=== PATIENT | female | born 1990 | race Caucasian/White ===

== ENCOUNTER → 2022-06-20 | Outpatient (CLI) | payer BC, OTHER ==
[2022-06-20 17:04] VITALS: BP 111/77; PULSE 89; TEMP 98.3; BMI 50.1
--- NOTE | 2022-06-20 17:35 | P.HPBAR ---
Bariatric H&P - History & Physicial H&P Date: 06/20/22 History & Physicial: Visit/CC: new patient Patient initial contact: Initial weight: Initial weight in pounds: Height: 5 ft 2.5 in Initial BMI: Last weight: Current weight: 126.507 kg Current weight in pounds: 278.90 Current BMI: 50.1 [place] body weight (based on NIH guidelines): 51.029 kg Excess body weight loss: The patient is a 32 year-old F who presents for Bariatric Assessment. She has lost weight on her own with not eating. She was down to 238 pounds in 2018 and gained all her weight. She is looking into gastrectomy. She needs left knee replacment. She feel down flight of stairs. She has severe hip and back pain from her pain. 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 She is tearful. She was on adipex last year. MOther with troubles with weight. She had weight loss surgery last year and is doing well. Past Medical History Past Medical History: Asthma Additional Past Medical History / Comment(s): migraine headaches, degenerative joint disease left knee, right eye high pressure, heart palpitations History of Any Multi-Drug Resistant Organisms: None Reported Past Surgical History: Orthopedic Surgery, Tubal Ligation Additional Past Surgical History / Comment(s): left knee surgery Past Anesthesia/Blood Transfusion Reactions: No Reported Reaction, Motion Sickness Past Psychological History: Anxiety Smoking Status: Former smoker Past Alcohol Use History: Occasional Past Drug Use History: Marijuana Additional Drug Use History / Comment(s): occasional marijuana for pain Surgical - Exam Vital Signs Temp Pulse BP 98.3 F 89 111/77 06/20/22 16:59 06/20/22 16:59 06/20/22 16:59 Bariatric Checklist Checklist: Plan: Checklist: EGD: 1. Hiatal hernia: 2. H. Pylori: HgbA1c: Vitamin D: Smoking: Primary care physician referral: Yoon Zabala NP Psychiatry clearance: Cardiology clearance: Sleep study: Diet journal: VTE risk score: VTE risk level: Rehab needs at discharge:
== END ==
LOC: BARWHC3 15:54
PROVIDERS: ATTEND Surgery Plastic and Reconstructive Surgery
DX: E66.01 Morbid (severe) obesity due to excess calories (principal); Z53.9 Procedure and treatment not carried out, unspecified reason
CPT/HCPCS: 99203

== ENCOUNTER → 2022-10-03 | Outpatient (CLI) | payer BC, OTHER ==
[2022-10-03 16:17] VITALS: BP 118/80; PULSE 69; RESP 12; TEMP 98.7; BMI 50.3
--- NOTE | 2022-10-03 17:14 | P.BASOAP ---
Subjective Progress Note Date: 10/03/22 She is looking into all options. REcommend revisit options. Follow up after Objective - Vital Signs Vital signs: Vital Signs Temp 98.7 F 10/03/22 16:14 Pulse 69 10/03/22 16:14 Resp 12 10/03/22 16:14 BP 118/80 10/03/22 16:14 Pulse Ox FiO2 Intake & Output 10/02/22 10/03/22 10/03/22 18:59 06:59 18:59 Weight 126.87 kg Assessment/Plan Plan: Date: 10/03/22 Initial Weight: Initial BMI: Current Weight: 126.87 kg Current BMI: 50.3 Type of Surgery: Total Volume in Band: Previous Volume: Volume Removed: Volume Added: Band Size:
== END ==
LOC: BARWHC3 15:09
PROVIDERS: ATTEND Surgery Plastic and Reconstructive Surgery
DX: E66.01 Morbid (severe) obesity due to excess calories (principal); Z68.43 Body mass index [BMI] 50.0-59.9, adult; Z91.048 Other nonmedicinal substance allergy status; Z88.8 Allergy status to other drugs, medicaments and biological substances
CPT/HCPCS: 99211

== ENCOUNTER 2023-06-24 09:07 | Day surgery (SDC) | payer OTHER ==
[2023-06-21 11:35] VITALS: BMI 53.8
--- NOTE | 2023-06-24 07:08 | P.GSHP ---
History of Present Illness H&P Date: 06/24/23 CHIEF COMPLAINT: Cholecystitis HISTORY OF PRESENT ILLNESS: The patient is a 33-year-old female who presents with history of epigastric including right upper quadrant abdominal pain. She underwent diagnostic studies for her gallbladder. Separately her clinical picture was consistent with cholecystitis. Now she presents for surgical intervention. PAST MEDICAL HISTORY: Please see list PAST SURGICAL HISTORY: Please see list MEDICATIONS: Please see list ALLERGIES: Please see list SOCIAL HISTORY: Please see list FAMILY HISTORY: Please see list REVIEW OF ORGAN SYSTEMS: CONSTITUTIONAL: No reports of fevers or chills. HEENT: Denies any troubles with the vision or hearing. ENDOCRINE: No reports of hypothyroidism. No diabetes. RESPIRATORY: No recent pneumonias. CARDIOVASCULAR: Denies chest pain or palpitations GI: No blood in stools or constipation. MUSCULOSKELETAL: Has occasional joint pain including back pain. NEURO: No seizure disorders or headaches. No recent stroke. PSYCH: No depression or suicidal ideation. GENITOURINARY: No active blood in urine. No urinary hesitancy. HEMATOLOGIC: No personal or family history of DVTs or pulmonary emboli. SKIN: No skin cancer. PHYSICAL EXAM: VITAL SIGNS: Afebrile vital signs stable GENERAL: Well-developed pleasant in no acute distress. HEENT: No scleral icterus. Extraocular movements grossly intact. Moist buccal mucosa. NECK: Supple without lymphadenopathy. CHEST: Unlabored respirations. Equal bilateral excursions. CARDIOVASCULAR: Regular rate regular rhythm rhythm. Distal 2+ pulses. ABDOMEN: Soft, nondistended. Tender along the epigastrium and right upper quadrant. MUSCULOSKELETAL: No clubbing, cyanosis, or edema. NEURO: Cranial nerves II to XII within normal limits. No focal or lateralizing signs. PSYCH: Alert and oriented to person, place and time. SKIN: Well-perfused good skin turgor. ASSESSMENT: 1. Epigastric and right upper quadrant abdominal pain 2. Chronic cholecystitis 3. Symptomatic gallstones. PLAN: 1. Will need a robotic cholecystectomy possible open. Benefits and risks were described. 2. Heparin for DVT prophylaxis 5000 units. 3. Antibiotic prophylaxis. 4. CBC and CMP on day of procedure 5. Non-narcotic pre and post op pain management reviewed. 6. Indocyanine green for biliary imaging. 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), heart palpitations - when stressed History of Any Multi-Drug Resistant Organisms: None Reported Past Surgical History: Orthopedic Surgery, Tonsillectomy, Tubal Ligation Additional Past Surgical History / Comment(s): left knee surgery ACL and patella repair Past Anesthesia/Blood Transfusion Reactions: No Reported Reaction, Motion Sickness Additional Past Anesthesia/Blood Transfusion Reaction / Comment(s): motion sickness on boats Smoking Status: Former smoker Medications and Allergies Home Medications Medication Instructions Recorded Confirmed Type No Known Home Medications 09/12/22 06/21/23 History Allergies Allergy/AdvReac Type Severity Reaction Status Date / Time adhesive Allergy Rash/Hives Verified 10/03/22 16:13 metronidazole [From Flagyl] Allergy Rash/Hives Verified 10/03/22 16:13
[~2023-06-24 09:07] MED LIST: INDOCYANINE GREEN 25 MG VIAL IV STA; LIDOCAINE 1% (10MG/ML) FOR IV START INTRADERMA PRN; droPERidol 5 MG/2 ML VIAL IVP ONE
[2023-06-24 10:03] VITALS: RESP 16
[2023-06-24] MEDS: LACTATED RINGERS 1,000 ML IV SCH (10:05)
[2023-06-24 10:23] LABS: Basophils % (A) 0 %; Eosinophils # (A) 0.2 k/uL (0-0.7); Eosinophils % (A) 3 %; HCT 37.9 % (34.0-46.0); HGB 13.1 gm/dL (11.4-16.0); Lymphocytes # (A) 2.2 k/uL (1.0-4.8); Lymphocytes % (A) 39 %; MCH 31.6 pg (25.0-35.0); MCHC 34.6 g/dL (31.0-37.0); MCV 91.4 fL (80.0-100.0); Mean Platelet Volume 8.4; Monocytes # (A) 0.3 k/uL (0-1.0); Monocytes % (A) 5 %; Neutrophils # (A) 2.9 k/uL (1.3-7.7); Neutrophils % (A) 51 %; Platelet Count 227 k/uL (150-450); RBC 4.15 m/uL (3.80-5.40); WBC 5.7 k/uL (3.8-10.6)
[2023-06-24] MEDS: ONDANSETRON 4 MG/2 ML VIAL IVP ONE (10:28)
[2023-06-24] MEDS: DEXAMETHASONE SOD PHOSPHATE 4 MG/ML 1 ML VIAL IV ONE (10:28)
[2023-06-24] MEDS: HEPARIN SODIUM,PORCINE 5,000 UNIT/ML 1 ML VIAL SQ PRN (10:28)
[2023-06-24] MEDS ORDERED: NEOSTIGMINE 1 MG/ML 10 ML VIAL ONE (10:34)
[2023-06-24] MEDS ORDERED: ROCURONIUM 10 MG/ML (5 ML VIAL) IV ONE (10:34)
[2023-06-24] MEDS ORDERED: MIDAZOLAM 2 MG/2 ML VIAL ONE (10:34)
[2023-06-24] MEDS ORDERED: PROPOFOL 10 MG/ML 20 ML VIAL IV ONE (10:34)
[2023-06-24] MEDS ORDERED: SUCCINYLCHOLINE CHLORIDE 200 MG/10 ML VIAL IV ONE (10:34)
[2023-06-24] MEDS ORDERED: fentaNYL (PF) 50 MCG/ML 2 ML AMP ONE (10:34)
[2023-06-24] MEDS ORDERED: LIDOCAINE 1% INJ 10MG/ML (20 ML MDV) ONE (10:34)
[2023-06-24] MEDS ORDERED: GLYCOPYRROLATE 0.2 MG/ML 2 ML VIAL ONE (10:34)
[2023-06-24] MEDS ORDERED: HYDROmorphone (PF) 1 MG/ML ONE (10:34)
[2023-06-24] MEDS: ceFAZolin 3 GM in SODIUM CHLORIDE 0.9% 100 ML IVPB PRN (10:39)
[2023-06-24 10:42] LABS: ALT 27 U/L (4-34); AST 30 U/L (14-36); African American GFR (CKD) >90 (>60 ml/min/1.73 sqM); Alkaline Phosphatase 61 U/L (38-126); Anion Gap 6 mmol/L; Blood Urea Nitrogen 10 mg/dL (7-17); Calcium 8.8 mg/dL (8.4-10.2); Carbon Dioxide 24 mmol/L (22-30); Chloride 109 mmol/L (98-107); Glucose 94 mg/dL (74-99); Non-African American GFR(CKD) >90 (>60 ml/min/1.73 sqM); Potassium 4.3 mmol/L (3.5-5.1); Sodium 139 mmol/L (137-145); Total Bilirubin 0.6 mg/dL (0.2-1.3)
[2023-06-24] MEDS: LIDOCAINE 1%-EPI 1:100,000 50 ML VIAL SQ ONE (11:06)
[2023-06-24] MEDS: LACTATED RINGERS 1,000 ML IV ONE (11:38)
--- NOTE | 2023-06-24 12:25 | P.HPADDEND ---
H&P Addendum H&P Addendum Date: 06/24/23 Patient had abnormal EKG was repeated confirming an abnormal EKG. Patient confirmed that she was able to run around her home after chasing rabbits. Will need cardiac risk assessment postoperatively.
--- NOTE | 2023-06-24 12:29 | P.OP ---
Date of Procedure: 06/24/23 Description of Procedure: SURGEON: THA SYKES MD PREOPERATIVE DIAGNOSES: 1. Symptomatic gallstones 2. Morbid obesity due to excess calories, BMI 54.4 POSTOPERATIVE DIAGNOSES: 1. Symptomatic gallstones 2. Morbid obesity due to excess calories, BMI 54.4 3. Hepatomegaly, mild OPERATION: Robotic-assisted da Junior Xi laparoscopic cholecystectomy, multiport with FIREFLY ESTIMATED BLOOD LOSS: 5 mL. SPECIMENS REMOVED: Gallbladder. COMPLICATIONS: None. OPERATIVE FINDINGS: 1. Dome down technique for cholecystectomy due to moderate fatty tissue is cystic duct 2. Mild fatty liver disease 3. No intra-abdominal adhesions INDICATIONS: The patient is a 33 year-old female who presents with symptomatic gallstones. Surgical intervention with cholecystectomy was described. Robotic assisted laparoscopic approach was described. Benefits and risks of the procedure including but not limited to bleeding, infection, injury to the biliary tree was reviewed. Informed consent was obtained. DESCRIPTION OF PROCEDURE: Patient was brought to the operating room, placed in supine position. After general induction, the abdomen had been prepped and draped in standard sterile fashion. The robotic da Junior XI system was primed. After a timeout protocol was performed, the patient had been prepped and draped in standard sterile fashion. The patient was injected with indocyanine green. A 5 mm 0 degrees laparoscopic trocar entry was performed along the left upper quadrant. The abdomen insufflated to 15 mmHg pressure which was tolerated well. Diagnostic laparoscopy demonstrated no injury to bowel viscera or mesentery. Mild hepatomegaly was identified. Next, two 8 mm robotic ports were placed along the right upper abdomen. The camera 8-mm port was maintained along the epigastrium. Another 8 mm port was placed along the left upper abdominal wall after exchanging the 5 mm port. Please note that the ports were placed at least 10 to 15 cm away from the target anatomy of the gallbladder. The robot was docked along the left lateral abdomen. The patient was repositioned in reverse Trendelenburg position with the right side up. Using a grasper for arm 3, a grasper for arm 4, including hook cautery for arm 1, the robotic system was docked and primed as described. Instruments were interchanged by the graphic design assistant including hook cautery, Bovie cautery and clip appliers. I had sat at the console. The gallbladder was reflected towards the dome of the liver. The gallbladder was largely mesenteric allowing dome down technique. Using a sponge, the liver was reflected towards the diaphragm and starting at the gallbladder fundus, hook cautery was used to find the avascular plane between the liver and the gallbladder. As the gallbladder was dissected from the hepatic fossa, hemostasis was checked using vessel sealer along the posterior gallbladder. Next, indocyanine green was used to confirm the common bile duct as well as cystic duct. The gallbladder had moderate infundibulum. The infundibulum was retracted laterally to expose the cystic duct away from the common bile duct. The cystic duct was dissected free from its surrounding tissue. FIREFLY was used to identify the cystic structures. A critical view of safety was obtained. Large PLASTIC clips were used throughout the entire case. Using a clip tour sales representative, a clip was placed at the junction of the infundibulum and cystic duct. A total of 6-7 clips were used. Electro-Bovie cautery and vessel sealer was used to remove the gallbladder without decompression. Hemostasis was checked and found to be adequate. The robot was undocked. I re-scrubbed into the case. A 10 mm Endo Catch bag was used to remove the gallbladder in total via the left upper quadrant incision after widening the incision. The specimen was removed from the abdominal cavity. [place] Aj and 0 Vicryl was used to close the fascial defect of the left upper quadrant. All pneumoperitoneum instruments were evacuated from the abdominal cavity. The incisions were cleansed using dilute hydrogen peroxide. The incisions were reapproximated using 4-0 Monocryl in an interrupted subcuticular fashion. Please note along the trocar sites, local anesthetic was placed as a field block prior to insertion of all instruments. Liquid glue was applied to the skin. At the end of the procedure needle, sponge, and instrument count had been verified correct by the surgical scrub tech. The patient was transferred to postanesthesia care unit in stable condition. Intraoperative films were shared with the patient's family who were pleased with the level of care. Plan - Discharge Summary Discharge Rx Participant: Yes New Discharge Prescriptions: New Ibuprofen [Motrin] 600 mg PO Q8HR PRN #30 tab PRN Reason: Pain Acetaminophen Tab [Tylenol Tab] 1,000 mg PO Q6HR PRN #30 tablet PRN Reason: Pain Simethicone [Gas-X] 125 mg PO AC-TID PRN #20 capsule PRN Reason: Pain Discharge Medication List Acetaminophen Tab [Tylenol Tab] 1,000 mg PO Q6HR PRN #30 tablet 06/24/23 [Rx] Ibuprofen [Motrin] 600 mg PO Q8HR PRN #30 tab 06/24/23 [Rx] Simethicone [Gas-X] 125 mg PO AC-TID PRN #20 capsule 06/24/23 [Rx] Follow up [facility]ment(s[facility]Ref[place] [facility] [place] [facility] [place] [facility]23 9:00 am Patient Instructions/Handouts: *Sur[facility] - Laparoscopic Cholecystectomy Discharge Instructions, *Surgery [facility] - (Anesthesia) Discharge Instructions Outpatient Surgery, Low Fat Diet (GEN) Activity/Diet/Wound Care/Special Instructions: Recommend low-fat diet for the next 2 days. No lifting over 10 pounds in 2 weeks until Jul 08September shower. No bath tub soaks for two weeks until Jul 08 Diet as tolerated. Use Tylenol, simethicone and ibuprofen or Aleve scheduled for the next 24-48 hours for best pain relief. Use ice along incisions for today to prevent swelling. Discharge Disposition: HOME SELF-CARE
[2023-06-24 12:34] VITALS: TEMP 97.9
[2023-06-24] MEDS: HYDROmorphone 0.5 MG/0.5 ML SYRINGE IVP PRN (12:56)
[2023-06-24] MEDS: diphenhydrAMINE 50 MG/ML 1 ML VIAL IVP ONE (13:07)
[2023-06-24 13:34] VITALS: PULSE 89
[2023-06-24 14:05] VITALS: BP 138/76
== END 2023-06-24 14:45 | disposition home or self-care (01) ==
LOC: OR 09:07
PROVIDERS: ATTEND Surgery Plastic and Reconstructive Surgery
DX: K80.10 Calculus of gallbladder with chronic cholecystitis without obstruction (principal); E66.01 Morbid (severe) obesity due to excess calories; Z68.43 Body mass index [BMI] 50.0-59.9, adult
CPT/HCPCS: 47563; 81025; 88304; 80053; 85025; J2250; J0330; J1200; J1644; J1100; J2710; J0690; J2405; J2001; J3010; J1170 ×2; J2704

== ENCOUNTER → 2023-06-28 | Outpatient (CLI) | payer OTHER ==
--- NOTE | 2023-06-28 09:27 | P.PN ---
Progress Note - Text Progress Note Date: 06/28/23 To whom it may concern: Aura Hilton is under my surgical care and just had surgery. She will need recovery from Jun 24, 2023 through Jul 07, 2023. She may return to work Saturday without restrictions. Regards, Eun Russell MD
[2023-06-28 10:25] VITALS: BMI 51.2
[2023-06-28] MEDS: DEXAMETHASONE SOD PHOSPHATE 10 MG/ML 1 ML VIAL IM STA (10:39)
[2023-06-28 10:57] VITALS: BP 131/65; PULSE 64; RESP 14; TEMP 98.2
--- NOTE | 2023-06-28 11:21 | P.BASOAP ---
Subjective Progress Note Date: 06/28/23 Patient has moderate rash along abdomen and pannus. Likely reaction from [place]. Recommend Claritin, Zyrtec, Benadryl at home. Also recommend Decadron injection. Patient had abnormal EKG at the time of her gallbladder surgery. Will need referral to a extrusion technician for abnormal EKG. Additionally, recommend full bariatric labs as a nutritional panel is absent. Will need full bariatric risk assessment pending. Otherwise, no infection along incisions. Recommend 2- week recovery. Presence of panniculitis with redness in each breast and pannus identified. Objective - Vital Signs Vital signs: Vital Signs Temp 98.2 F 06/28/23 10:34 Pulse 64 06/28/23 10:34 Resp 14 06/28/23 10:34 BP 131/65 06/28/23 10:34 Pulse Ox FiO2 Intake & Output 06/27/23 06/28/23 06/28/23 18:59 06:59 18:59 Weight 129.274 kg Assessment/Plan Plan: Date: 06/28/23 Initial Weight: 126.354 kg Initial BMI: 50.1 Current Weight: 129.274 kg Current BMI: 51.2 Type of Surgery: Total Volume in Band: Previous Volume: Volume Removed: Volume Added: Band Size:
== END ==
LOC: BARWHC3 09:08
PROVIDERS: ATTEND Surgery Plastic and Reconstructive Surgery
DX: T78.40XA Allergy, unspecified, initial encounter (principal)
CPT/HCPCS: 99213; 96372; J1100

== ENCOUNTER → 2023-06-28 | Outpatient (CLI) | payer OTHER ==
[2023-06-28 11:03] LABS: INR 0.9 (<1.2); Partial Thromboplastin Time 23.2 sec (22.0-30.0); Prothrombin Time 9.9 sec (10.0-12.5)
[2023-06-28 15:58] LABS: HGB 12.3 g/dL (12.0-15.0); MCH 30.5 pg (27.0-32.0); MCHC 33.2 g/dL (32.0-37.0); MCV 91.8 FL (80.0-97.0); Mean Platelet Volume 11.4 FL (9.5-12.2); NRBC Per 100 WBC 0 X 10*3/uL (0.00-0.01); Platelet Count 258 X 10*3/uL (140-440); RBC 4.03 X 10*6/uL (4.10-5.20); RDW 12.4 % (11.5-14.5); WBC 7.69 X 10*3/uL (4.50-10.00)
[2023-06-28 16:10] LABS: Prealbumin 20.1 mg/dL (18.0-42.0)
[2023-06-28 17:08] LABS: ALT 32 U/L (8-44); AST 18 U/L (13-35); Albumin 4.2 g/dL (3.8-4.9); Albumin/Globulin Ratio 1.75 Ratio (1.60-3.17); Alkaline Phosphatase 61 U/L (41-126); BUN/Creat Ratio 17.17 Ratio (12.00-20.00); Blood Urea Nitrogen 10.3 mg/dL (9.0-27.0); Calcium 9.8 mg/dL (8.7-10.3); Carbon Dioxide 25.5 mmol/L (21.6-31.8); Chloride 104 mmol/L (96-109); Globulin 2.4 g/dL (1.6-3.3); Glucose 94 mg/dL (70-110); Iron 55 UG/DL (50-170); LDL Cholesterol,Calculated 95.8 mg/dL (0.0-131.0); Magnesium 1.9 mg/dL (1.5-2.4); Phosphorus 3.2 mg/dL (2.4-5.1); Potassium 4.4 mmol/L (3.5-5.5); Sodium 140 mmol/L (135-145); Total Bilirubin 0.5 mg/dL (0.3-1.2); Total Iron Binding Capacity 318 UG/DL (228-460); Total Protein 6.6 g/dL (6.2-8.2)
== END | disposition home or self-care (01) ==
LOC: LABPAT 09:50
PROVIDERS: ATTEND Surgery Plastic and Reconstructive Surgery
DX: E66.01 Morbid (severe) obesity due to excess calories (principal); E89.1 Postprocedural hypoinsulinemia; D50.8 Other iron deficiency anemias; K91.2 Postsurgical malabsorption, not elsewhere classified; E44.1 Mild protein-calorie malnutrition; E44.0 Moderate protein-calorie malnutrition; E45 Retarded development following protein-calorie malnutrition; E55.9 Vitamin D deficiency, unspecified; K74.1 Hepatic sclerosis; N19 Unspecified kidney failure; T56.894A Toxic effect of other metals, undetermined, initial encounter; K50.90 Crohn's disease, unspecified, without complications
CPT/HCPCS: 80053; 80061; 82306; 82525; 82607; 82728; 82746; 83036; 83540; 83550; 83735; 83970; 84100; 84134; 84255; 84425; 84443; 84590; 84630; 85027; 85610; 85730

== ENCOUNTER → 2023-07-22 | Outpatient (CLI) | payer OTHER ==
[2023-07-22 15:14] VITALS: BMI 51.7
== END | disposition home or self-care (01) ==
LOC: BARWHC3 13:01
PROVIDERS: ATTEND Surgery Plastic and Reconstructive Surgery
DX: E66.01 Morbid (severe) obesity due to excess calories (principal); F12.90 Cannabis use, unspecified, uncomplicated; Z71.3 Dietary counseling and surveillance; Z91.048 Other nonmedicinal substance allergy status; Z88.8 Allergy status to other drugs, medicaments and biological substances
CPT/HCPCS: 97804; 99211

== ENCOUNTER → 2023-09-25 | Outpatient (CLI) | payer OTHER ==
[2023-09-25 16:13] VITALS: BP 104/69; PULSE 74; RESP 14; TEMP 97.9; BMI 50.2
--- NOTE | 2023-09-25 16:43 | P.BASOAP ---
Subjective Progress Note Date: 09/25/23 Consent. She lost 4 pounds already. She is better after gallbladder. She was 279 pounds. Goal 265. Home is 276 pounds, 262 pounds for home. FDD plan. Sleeve Objective - Vital Signs Vital signs: Vital Signs Temp 97.9 F 09/25/23 15:48 Pulse 74 09/25/23 15:48 Resp 14 09/25/23 15:48 BP 104/69 09/25/23 15:48 Pulse Ox FiO2 Intake & Output 09/24/23 09/25/23 09/25/23 18:59 06:59 18:59 Weight 126.552 kg Assessment/Plan Plan: Date: 09/25/23 Initial Weight: 126.354 kg Initial BMI: 50.1 Current Weight: 126.552 kg Current BMI: 50.2 Type of Surgery: Total Volume in Band: Previous Volume: Volume Removed: Volume Added: Band Size:
== END ==
LOC: BARWHC3 15:45
PROVIDERS: ATTEND Surgery Plastic and Reconstructive Surgery
DX: E66.01 Morbid (severe) obesity due to excess calories (principal); Z87.891 Personal history of nicotine dependence; Z68.43 Body mass index [BMI] 50.0-59.9, adult; Z91.048 Other nonmedicinal substance allergy status; Z88.8 Allergy status to other drugs, medicaments and biological substances
CPT/HCPCS: 99211

== ENCOUNTER 2023-09-26 13:35 | Inpatient (IN) | payer OTHER ==
[2023-10-14] MEDS ORDERED: ALVIMOPAN 12 MG CAPSULE PO PRN (05:00)
[2023-10-14] MEDS ORDERED: ONDANSETRON 4 MG/2 ML VIAL IVP PRN (05:00)
[2023-10-14] MEDS ORDERED: ACETAMINOPHEN TAB 500 MG TAB PO PRN (05:00)
[2023-10-14] MEDS ORDERED: ENOXAPARIN 40 MG/0.4 ML SYRINGE SQ PRN (05:00)
[2023-10-14] MEDS ORDERED: LIDOCAINE 1% (10MG/ML) FOR IV START INTRADERMA PRN (06:50)
[2023-10-14] MEDS ORDERED: MIDAZOLAM 2 MG/2 ML VIAL IV PRN (06:50)
--- NOTE | 2023-10-14 09:36 | P.GSHP ---
History of Present Illness H&P Date: 10/14/23 CHIEF COMPLAINT: Morbid obesity HISTORY OF PRESENT ILLNESS: Aura Hilton is a 33-year-old female who comes with lifelong morbid obesity. As result of morbid obesity, she has developed osteoarthritis of the bilateral knees, lower back, degenerative joint disease. At height of 5 feet 2.5 inches, her ideal body weight is 135 pounds. She comes in 285 pounds. Her body mass index is 51.3. She is 150 pounds overweight. She has gained 5 pounds in 8 months. She has completed bariatric, cardiac and medical risk assessment. She has elected for sleeve gastrectomy. PAST MEDICAL HISTORY: 1. Morbid obesity due to excess calories 2. Body mass index of 51.3 3. Osteoarthritis of the knees. 4. Osteoarthritis of the lower back. 5. Asthma 6. Migraines 7. Degenerative joint disease of the back 8. Palpitations 9. Generalized anxiety disorder 10. Glaucoma PAST SURGICAL HISTORY: 1. Tonsillectomy 2. Tubal ligation 3. Left knee surgery 4. Tubal ligation HOME MEDICATIONS: Previous Rx's Medication Instructions Recorded Acetaminophen Tab [Tylenol Tab] 1,000 mg PO Q6HR PRN #30 tablet 06/24/23 Ibuprofen [Motrin] 600 mg PO Q8HR PRN #30 tab 06/24/23 Simethicone [Gas-X] 125 mg PO AC-TID PRN #20 capsule 06/24/23 ALLERGIES: Allergies Allergy/AdvReac Type Severity Reaction Status Date / Time adhesive Allergy Rash/Hives Verified 06/28/23 10:33 metronidazole [From Flagyl] Allergy Rash/Hives Verified 06/28/23 10:33 SOCIAL HISTORY: Past tobacco use. Marijuana use FAMILY HISTORY: No family history of ulcerative colitis disease or Crohn's disease. Family history of morbid obesity. No lupus in the family. No reports of stomach or esophageal cancer. REVIEW OF ORGAN SYSTEMS: CONSTITUTIONAL: At height of 5 feet 2.5 inches, her ideal body weight is 135 pounds. She comes in 285 pounds. Her body mass index is 51.3. She is 150 pounds overweight. She has gained 5 pounds in 8 months. HEENT: Denies any active troubles with vision or hearing. ENDOCRINE: Has diabetes. Has hypothyroidism. CARDIOVASCULAR: Past reports of palpitations or heart attacks or chest pain. RESPIRATORY: Has daytime somnolence. GASTROINTESTINAL: Denies any bright red blood per rectum. Has gastroesophageal reflux disease. MUSCULOSKELETAL: Has lower back pain and joint pain. Has osteoarthritis of the knees. NEURO: No headaches. No seizure disorders. PSYCH: Has depression. No suicidal ideation. RHEUMATOLOGIC: No lupus. No rheumatoid arthritis. HEMATOLOGIC: Denies any abnormal bleeding or bruising. No personal history of DVTs. SKIN: Has rash. No skin cancer. PHYSICAL EXAM: VITAL SIGNS: Height 5 foot 2.5 inches, weight 285 pounds. BMI 51.3 GENERAL: Well-developed in no acute distress. HEENT: No scleral icterus. Extraocular movements grossly intact. Hears conversational speech. No nasal drainage. NECK: Supple without lymphadenopathy. CHEST: Nonlabored respirations with equal bilateral excursions. CARDIOVASCULAR: Regular rate and regular rhythm. Distal 2+ pulses. ABDOMEN: Obese, soft, nontender, nondistended. MUSCULOSKELETAL: No clubbing, cyanosis. NEURO: No focal or lateralizing signs. Cranial nerves 2 through 12 grossly within normal limits. PSYCH: Appropriate affect. Alert and oriented to person, place and time. SKIN: Good skin turgor. Well perfused. ASSESSMENT: 1. Morbid obesity due to excess calories 2. Body mass index of 51.3 3. Osteoarthritis of the knees. 4. Osteoarthritis of the lower back. 5. Asthma 6. Migraines 7. Degenerative joint disease of the back 8. Palpitations 9. Generalized anxiety disorder 10. Glaucoma 11. Hypertensive heart disease PLAN: 1. Bariatric options between a sleeve, band and a Leni-en-Y gastric bypass were reviewed in detail. The patient elected for a sleeve gastrectomy. Robotic assisted approach described. 2. The [place] [facility] Data was also reviewed with benefits and risks as described. 3. An 8 page second-generation bariatric consent form was reviewed in detail including potential of bleeding, infection, leaks, adequate weight loss, nutritional deficiencies which the patient demonstrated understanding of the risks. 4. A 2 week high-protein low caloric 800 kcal diet described to address hepatomegaly. 5. Preoperative labs including complete metabolic panel and CBC with type and screen recommended. 6. DVT prophylaxis per [place] [facility]. 7. Antibiotic prophylaxis. 8. Inpatient hospitalization anticipated for more than 2 nights. 9. All questions and concerns were addressed with the patient. 10. The patient is at elevated risk for perioperative complications with body mass index over 50 11. Overall, patient has expressed understanding of bariatric care including postoperative diet and commitment of lifestyle. Patient should benefit from surgical intervention for correction of morbid obesity. 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), heart palpitations - when stressed, History of Any Multi-Drug Resistant Organisms: None Reported Past Surgical History: Orthopedic Surgery, Tonsillectomy, Tubal Ligation Additional Past Surgical History / Comment(s): left knee surgery ACL and patella repair Past Anesthesia/Blood Transfusion Reactions: No Reported Reaction, Motion Sickness Additional Past Anesthesia/Blood Transfusion Reaction / Comment(s): motion sickness on boats Smoking Status: Former smoker - Past Family History Mother Family Medical History: No Reported History Medications and Allergies Home Medications Medication Instructions Recorded Confirmed Type Cariprazine HCl [Vraylar] 1.5 mg PO DAILY 09/25/23 10/10/23 History Loratadine [Claritin] 10 mg PO DAILY 09/25/23 10/10/23 History Allergies Allergy/AdvReac Type Severity Reaction Status Date / Time adhesive Allergy Rash/Hives Verified 10/10/23 08:49 metronidazole [From Flagyl] Allergy Rash/Hives Verified 10/10/23 08:49 surgical glue Allergy Severe Anaphylaxis Uncoded 10/10/23 09:45
[2023-10-14] MEDS ORDERED: ROCURONIUM 10 MG/ML (5 ML VIAL) IV ONE (16:58)
[2023-10-14] MEDS ORDERED: diphenhydrAMINE 50 MG/ML 1 ML VIAL ONE (16:58)
[2023-10-14] MEDS ORDERED: NEOSTIGMINE 1 MG/ML 10 ML VIAL ONE (16:58)
[2023-10-14] MEDS ORDERED: HYDROmorphone (PF) 1 MG/ML ONE (16:58)
[2023-10-14] MEDS ORDERED: LIDOCAINE 1% INJ 10MG/ML (20 ML MDV) ONE (16:58)
[2023-10-14] MEDS ORDERED: fentaNYL (PF) 50 MCG/ML 2 ML AMP ONE (16:58)
[2023-10-14] MEDS ORDERED: MIDAZOLAM 2 MG/2 ML VIAL ONE (16:58)
[2023-10-14] MEDS ORDERED: SUCCINYLCHOLINE CHLORIDE 200 MG/10 ML VIAL IV ONE (16:58)
[2023-10-14] MEDS ORDERED: ESMOLOL 100 MG/10 ML VIAL ONE (16:58)
[2023-10-14] MEDS ORDERED: DEXAMETHASONE SOD PHOSPHATE 10 MG/ML 1 ML VIAL ONE (16:58)
[2023-10-14] MEDS ORDERED: GLYCOPYRROLATE 0.2 MG/ML 2 ML VIAL ONE (16:58)
[2023-10-14] MEDS ORDERED: PROPOFOL 10 MG/ML 20 ML VIAL IV ONE (16:58)
[2023-10-14] MEDS: LACTATED RINGERS 1,000 ML IV ONE ×2 (17:05→17:41)
[2023-10-14] MEDS: ceFAZolin 3 GM in SODIUM CHLORIDE 0.9% 100 ML IVPB PRN (17:05)
[2023-10-14] MEDS: LIDOCAINE 2%-EPI 1:100,000 20 ML VIAL SQ ONE (17:39)
[2023-10-14] MEDS ORDERED: NALOXONE 0.4 MG/ML 1 ML VIAL IV PRN (19:28)
[2023-10-14] MEDS: HYDROmorphone 0.5 MG/0.5 ML SYRINGE IVP PRN (19:43)
[2023-10-14] MEDS: HYDROmorphone 1 MG/ML 1 ML SYRINGE IVP PRN (20:57)
[2023-10-14] MEDS: ONDANSETRON 4 MG/2 ML VIAL IVP ONE (21:10)
[2023-10-14] MEDS: ALBUTEROL NEBULIZED 2.5 MG/3 ML INHALATION SCH (21:24)
[2023-10-14] MEDS: 0.9% NACL WITH KCL 20 MEQ/L 1,000 ML IV SCH (21:47)
[2023-10-14] MEDS: PANTOPRAZOLE 40 MG/10 ML VIAL IV SCH (21:52)
[2023-10-14] MEDS: LACTATED RINGERS 1,000 ML IV SCH (22:21)
[2023-10-14] MEDS: droPERidol 5 MG/2 ML VIAL IVP ONE (22:21)
[2023-10-14] MEDS: DEXAMETHASONE SOD PHOSPHATE 4 MG/ML 1 ML VIAL IV ONE (22:21)
[2023-10-14] MEDS: SCOPOLAMINE 1 MG/72 HR PATCH TRANSDERM STA (22:21)
[2023-10-14] MEDS: ACETAMINOPHEN IV (For NPO) 1,000 MG in EMPTY BAG 1 BAG IVPB SCH (23:56)
[2023-10-14] MEDS: SIMETHICONE 80 MG CHEWABLE PO SCH (23:57)
[2023-10-14] MEDS: ONDANSETRON 4 MG/2 ML VIAL IVP SCH (23:58)
[2023-10-14] MEDS: ceFAZolin 3 GM in SODIUM CHLORIDE 0.9% 100 ML IVPB SCH (23:58)
[2023-10-14] MEDS: DEXAMETHASONE SOD PHOSPHATE 4 MG/ML 1 ML VIAL IVP SCH (23:58)
[2023-10-15 08:43] LABS: Basophils # (A) 0 X 10*3/uL (0.00-0.10); Basophils % (A) 0 %; Eosinophils # (A) 0 X 10*3/uL (0.04-0.35); Eosinophils % (A) 0 %; HCT 37.3 % (37.2-46.3); HGB 12.7 g/dL (12.0-15.0); Lymphocytes # (A) 0.59 X 10*3/uL (0.90-5.00); Lymphocytes % (A) 7.2 %; Mean Platelet Volume 12.1 FL (9.5-12.2); Monocytes # (A) 0.12 X 10*3/uL (0.20-1.00); Monocytes % (A) 1.5 %; NRBC Per 100 WBC 0 X 10*3/uL (0.00-0.01); Neutrophils # (A) 7.47 X 10*3/uL (1.80-7.70); Neutrophils % (A) 90.9 %; Platelet Count 248 X 10*3/uL (140-440); RDW 12.6 % (11.5-14.5); WBC 8.21 X 10*3/uL (4.50-10.00)
[2023-10-15 09:17] LABS: Blood Urea Nitrogen 7.4 mg/dL (9.0-27.0); Calcium 8.7 mg/dL (8.7-10.3); Carbon Dioxide 17.3 mmol/L (21.6-31.8); Chloride 104 mmol/L (96-109); Magnesium 2.1 mg/dL (1.5-2.4); Phosphorus 3.3 mg/dL (2.4-5.1); Potassium 4.8 mmol/L (3.5-5.5); Sodium 137 mmol/L (135-145)
[2023-10-15] MEDS: PATIENT'S OWN (Cariprazine Hcl [Vraylar] 1.5 MG Capsule) PO SCH (09:20)
[2023-10-15] MEDS: ENOXAPARIN 40 MG/0.4 ML SYRINGE SQ SCH (09:23)
[2023-10-15] MEDS: 0.9% NACL WITH KCL 20 MEQ/L 1,000 ML IV SCH (10:46)
[2023-10-15 11:19] VITALS: BMI 51.0
--- NOTE | 2023-10-15 12:27 | FL ---
SINGLE CONTRAST UPPER GI EXAMINATION: CLINICAL HISTORY: 33-year-old female postoperative bariatric surgery, gastric sleeve TECHNIQUE: Single contrast exam performed with 40 ml Isovue-370 contrast. DAP: 338.96 mGycm2 FLUORO TIME: 40 SEC Total images: 14. FINDINGS: The patient swallowed oral contrast without difficulty or delay. Esophageal peristalsis and motility are within normal limits. There is prompt passage of contrast from esophagus into the stomach and s ubsequent prompt passage across the patient's sleeve gastrectomy and then into the duodenum. Satisfac tory narrowed caliber of the gastric sleeve. There is no evidence of contrast extravasation to suggest leak. No postsurgical free air. IMPRESSION: No evidence of leak or obstruction status post sleeve gastrectomy.
[2023-10-15] MEDS: diphenhydrAMINE 50 MG/ML 1 ML VIAL IVP SCH (13:01)
[2023-10-16 07:13] VITALS: RESP 18
--- NOTE | 2023-10-16 13:28 | P.DS ---
Providers Date of admission: 10/14/23 13:52 Expected date of discharge: 10/16/23 Attending physician: Eun Russell Primary care physician: Andre [facility] Course: Discharge diagnosis 1. Morbid obesity 2. Body mass index of 51.3 3. Osteoarthritis of the knees. 4. Osteoarthritis of the lower back. 5. Asthma 6. Migraines 7. Degenerative joint disease of the back 8. Palpitations 9. Generalized anxiety disorder 10. Glaucoma 11. Hypertensive heart disease Hospital course This is a 33-year-old female with history of morbid obesity. She is status post robotic assisted laparoscopic sleeve gastrectomy. Patient's pain is controlled. She is tolerating diet. Upper GI shows no evidence of leak or obstruction. She has been up and ambulating. She denies any difficulty urinating. She is afebrile. She is stable for discharge. Physician Advanced Manufacturing Consultant note has been reviewed by physician. Signing provider agrees with the documented findings, assessment, and plan of care. Please see additional documentation below. Diagnostic studies demonstrates no leak or obstruction. Patient tolerating liquids and ambulating. Close outpatient follow-up including management of contact dermatitis described. All questions were addressed. Patient was stable for discharge. Procedures: OPERATION: 1. Robotic assisted daVinci Xi laparoscopic sleeve gastrectomy with 40-Chinese bougie, multiport. 2. Intraoperative esophagogastroduodenoscopy. ANESTHESIA: Gen. local anesthetic ESTIMATED BLOOD LOSS: 5 mL SPECIMENS REMOVED: Sleeve gastrectomy COMPLICATIONS: None. FINDINGS: 1. Negative intraoperative esophagogastrojejunoscopy leak test. 2. No large hiatus hernia. 3. Total of 6 staplers used including 6 - 60 mm green and blue robot gael used to create the gastric sleeve. 4. Sleeve gastrectomy 26 x 4 cm Patient Condition at Discharge: Stable Plan - Discharge Summary Discharge Rx Participant: Yes New Discharge Prescriptions: New Simethicone 40 mg/0.6 ml Drops [Mylicon Drops] 40 mg PO PCHS PRN #30 ml PRN Reason: Gas Ondansetron Odt [Zofran Odt] 4 mg PO Q8HR PRN #9 tab PRN Reason: Nausea Acetaminophen Tab [Tylenol] 1,000 mg PO Q6HR PRN #30 tablet PRN Reason: Pain bisacodyL [Dulcolax] 5 mg PO DAILY PRN #10 tab PRN Reason: Constipation Omeprazole [PriLOSEC] 40 mg PO DAILY #30 cap Nystatin 100,000 Unit/gm Powd [Mycostatin Powder] 1 applic TOPICAL BID #15 gm Continue Loratadine [Claritin] 10 mg PO DAILY Cariprazine HCl [Vraylar] 1.5 mg PO DAILY No Action Triamcinolone 0.1% Cream [Kenalog 0.1% Cream] 1 applic TOPICAL BID #60 gm Discharge Medication List Cariprazine HCl [Vraylar] 1.5 mg PO DAILY 09/25/23 [History] Loratadine [Claritin] 10 mg PO DAILY 09/25/23 [History] Acetaminophen Tab [Tylenol] 1,000 mg PO Q6HR PRN #30 tablet 10/16/23 [Rx] Nystatin 100,000 Unit/gm Powd [Mycostatin Powder] 1 applic TOPICAL BID #15 gm 10/16/23 [Rx] Omeprazole [PriLOSEC] 40 mg PO DAILY #30 cap 10/16/23 [Rx] Ondansetron Odt [Zofran Odt] 4 mg PO Q8HR PRN #9 tab 10/16/23 [Rx] Simethicone 40 mg/0.6 ml Drops [Mylicon Drops] 40 mg PO PCHS PRN #30 ml 10/16/23 [Rx] bisacodyL [Dulcolax] 5 mg PO DAILY PRN #10 tab 10/16/23 [Rx] Triamcinolone 0.1% Cream [Kenalog 0.1% Cream] 1 applic TOPICAL BID #60 gm 10/18/23 [Rx] [facility]ment(s[facility]Ref[facility] [place] [facility] [place] [facility]23 9:00 am Patient Instructions/Handouts: Laparoscopic Sleeve Gastrectomy (DC) Activity/Diet/Wound Care/Special Instructions: Liquid diet only for 2 weeks No lifting over 4 pounds in 4 weeks, May Shower. No soaking in bath tubs for 2 weeks Please notify your surgeon if you develop nausea and vomiting including new onset of abdominal pain. Continue to use incentive spirometry to prevent pneumonias. Please continue to ambulate at home to prevent blood clots in legs. Follow-up at the bariatric center. May shower. Dressings to be discontinued by surgeon in the office. Drink 64 oz of fluid daily. Start protein shakes on . Notify bariatric center for temp over 101.0, increased pain, drainage from incisions. No straws or carbonated beverages. Liquid diet only. Sugar content should be less than 6 g to avoid dumping syndrome. Take MOM for constipation. CRUSH, OPEN, OR CUT TABLETS LARGER THAN A SIZE OF A TIC TAC Discharge Disposition: HOME SELF-CARE
[2023-10-16 15:10] VITALS: BP 103/67; PULSE 68; TEMP 98.5
--- NOTE | 2023-10-22 08:22 | P.OP ---
Date of Procedure: 10/14/23 Description of Procedure: SURGEON: THA SYKES MD PREOPERATIVE DIAGNOSES: 1. Morbid obesity due to excess calories 2. Body mass index of 51.3 3. Osteoarthritis of the knees. 4. Osteoarthritis of the lower back. 5. Asthma 6. Migraines 7. Degenerative joint disease of the back 8. Palpitations 9. Generalized anxiety disorder 10. Glaucoma 11. Hypertensive heart disease POSTOPERATIVE DIAGNOSES: 1. Morbid obesity due to excess calories 2. Body mass index of 51.3 3. Osteoarthritis of the knees. 4. Osteoarthritis of the lower back. 5. Asthma 6. Migraines 7. Degenerative joint disease of the back 8. Palpitations 9. Generalized anxiety disorder 10. Glaucoma 11. Hypertensive heart disease OPERATION: 1. Robotic assisted daVinci Xi laparoscopic sleeve gastrectomy with 40-Filipino bougie, multiport. 2. Intraoperative esophagogastroduodenoscopy. ANESTHESIA: Gen. local anesthetic ESTIMATED BLOOD LOSS: 5 mL SPECIMENS REMOVED: Sleeve gastrectomy COMPLICATIONS: None. FINDINGS: 1. Negative intraoperative esophagogastrojejunoscopy leak test. 2. No large hiatus hernia. 3. Total of 6 staplers used including 6 - 60 mm green and blue robot gael used to create the gastric sleeve. 4. Sleeve gastrectomy 26 x 4 cm INDICATIONS: Aura Hilton is a 33-year-old female who comes with lifelong morbid obesity. As result of morbid obesity, she has developed osteoarthritis of the bilateral knees, lower back, degenerative joint disease. At height of 5 feet 2.5 inches, her ideal body weight is 135 pounds. She comes in 285 pounds. Her body mass index is 51.3. She is 150 pounds overweight. She has gained 5 pounds in 8 months. She has completed bariatric, cardiac and medical risk assessment. She has elected for sleeve gastrectomy. All surgical options for morbid obesity had been described using the [place] bariatric surgery collaborative comorbidity resolution including complication risk score. A second-generation bariatric consent form was described in detail including the possibility of protein malnutrition, leaks, gastric stricture, venous thrombosis, gastroesophageal reflux disease, need for further surgery for which he demonstrated understanding. Benefits and risks of the procedure were described at length. Informed consent was obtained. DESCRIPTION: The patient was brought into the operating room theater. Preoperatively he had received Lovenox subcutaneously for DVT prophylaxis. Additionally he had Peridex oral solution as an oral decontaminant. After general induction, the abdomen was prepped and draped in standard sterile fashion. An Ioban draping was placed along the abdomen. No marti catheter was placed. A robotic da Junior Xi system was prepped and primed. At 15 cm from the xiphoid, proposed port sites were marked with indelible marker along the anterior axillary line bilaterally, mid axillary line bilaterally with each ports were marked 10 to 15 cm from each other. The legal administrative assistant port was marked along the left lateral abdominal wall. The robotic stapler port was marked for the right midclavicular line. A 5 mm 0 degrees laparoscopic trocar entry was performed along the left upper quadrant. The abdomen was insufflated to 15 mmHg pressure he tolerated well. Diagnostic laparoscopy demonstrated no injury to bowel, viscera, or mesentery. The liver surface was unremarkable for fatty liver disease. No injury had occurred to the small bowel or viscera. Along the hiatus no recurrent hiatal hernia was found. A 8 mm port was placed along the right upper abdominal wall after exchanging the 5 mm port. A separate 8 mm port was placed along the left lateral abdominal wall. Please note that the ports were placed at least 20 cm away from the target anatomy. Care was taken to check each robotic arms were safely away from collision with the bed or the patient. At the epigastrium, a medium sized Luis liver retractor was placed under direct visualization with the Iron Event Marketing Assistant placed under the right shoulder of the patient. Next, 12-mm robot stapler port was placed along the right upper quadrant. The camera 8-mm port was maintained along the epigastrium. The patient was repositioned in reverse Trendelenburg position at 25-degrees after lowering the bed. The robot was docked along the left side of the patient. Using a grasper for arm 4, a veseel sealer for arm 3, including grasper for arm 1, the robotic system was docked and primed as described. Instruments were interchanged by the legal administrative assistant for stapler loads. The camera was placed at 30-degrees down. I had sat at the console. The pylorus was identified and 6 cm proximally along the greater curvature of the stomach, the short gastrics were mobilized upwards to the angle of His using a vessel sealer. Hemostasis was excellent during this portion of the procedure. Next, the upper pole of the stomach was adherent to the left beverley, which was gently dissected free using atraumatic grasper. The nursing sales incentive analyst placed a 40-Filipino blunted tip bougie into the stomach. Robotic stapler green loads 60 mm x 6 were used to create the sleeve. Initial firing was across the antrum of the stomach towards the angle of His. The staple line was completely hemostatic and linear without corkscrewing. Hemostasis was excellent. The space from the angularis incisura of the sleeve was approximately 4 cm. I then went to the head of the bed to perform the intraoperative esophagogastroduodenoscopy leak test. The upper pole of the stomach was bathed using normal saline solution. The scope was withdrawn with careful inspection along the staple line for which no leaks were found along the entire length. Additionally, the sleeve was completely hemostatic without any encroachment along the angularis incisura. Its topology was a soft "J". No stricture was encountered upon placement of the scope. The GI tract was desufflated. The patient tolerated this portion of the procedure well. The scope was completely withdrawn. The robot was undocked. I then rescrubbed into case, whereby the irrigation fluid was aspirated from the abdominal cavity. Tisseel fibrin sealant was placed along the staple length. Once dried the Luis liver retractor was removed. Attention was now brought to removal of the specimen. The distal end of the sleeve gastrectomy specimen was brought out through the 12 mm port at the left upper quadrant. The specimen was gently removed en total, corresponding to 26 cm x 4 cm sleeve gastrectomy specimen. No contamination had occurred during this process. All instruments and pneumoperitoneum including irrigation fluid was removed from the abdominal cavity. The 12 mm port site was irrigated with warm normal saline solution and diluted hydron peroxide. The 12-mm port site was reapproximated using 0 Vicryl and [place] of the left upper quadrant. The final incisions were closed using subcuticular interrupted suture of 4-0 Monocryl. Dermabond was applied to the skin once the skin had been cleansed. OptiFoam dressing was placed along the stomach extraction site. At the end of the procedure, needle, sponge, and instrument count was verified correct by the surgical attendant. The patient was taken to the postanesthesia care unit in stable condition. The patient tolerated the procedure well. Intraoperative films and findings were reviewed with the patient's family.
--- NOTE | 2023-10-22 08:26 | P.PN ---
Subjective Progress Note Date: 10/15/23 has rash, ambulating CHIEF COMPLAINT: Morbid obesity HISTORY OF PRESENT ILLNESS: The patient is a 33-year-old female status post sleeve gastrectomy for morbid obesity. She is ambulating. She is tolerating liquids. She reports rash in any of her pannus underneath her breasts. No shortness of breath. She reports moderate pain ROS: No reports of nausea and vomiting. No bowel movements. No fevers or chills. No new chest pain. No productive sputum PHYSICAL EXAM: VITAL SIGNS: Reviewed CONSTITUTIONAL: Well developed and in no acute distress. EYES: Conjuctivae without sclera icterus. Extraocular movements grossly intact. HEAD, EARS, NOSE, THROAT: Moist buccal mucosa. Head is atraumatic, normocephalic. Hears conversational speech. No nasal drainage. RESPIRATORY: Non-labored respirations and equal bilateral excursions. CARDIOVASCULAR: Palpable 2+ radial pulses. ABDOMEN: Incisions clean dry intact with dressings. Contact dermatitis underneath breast and pannus. MUSCULOSKELETAL: No gross deformity of the lower extremities noted. No clubbing. No cyanosis. SKIN: Good skin turgor. Well perfused. NEUROLOGIC: Cranial nerves II through XII grossly intact. No focal or latera lizing signs. PSYCH: Appropriate affect. Alert and oriented to person, place and time. CLINICAL LABS: Reviewed. Hemoglobin within normal limits. ASSESSMENT: 1. Morbid obesity due to excess calories 2. Body mass index of 51.3 3. Osteoarthritis of the knees. 4. Osteoarthritis of the lower back. 5. Asthma 6. Migraines 7. Degenerative joint disease of the back 8. Palpitations 9. Generalized anxiety disorder 10. Glaucoma 11. Hypertensive heart disease 12. Status post sleeve gastrectomy 13. Contact dermatitis with panniculitis PLAN: 1. Steroids started for contact dermatitis and adhesive 2. IV fluid hydration for fluid resuscitation 3. For panniculitis, nystatin powder 4. Continue hospitalization for moderate rash and contact dermatitis including pain management Objective - Vital Signs Vital signs: Vital Signs Temp 98.1 F 10/15/23 20:32 Pulse 72 10/15/23 22:31 Resp 18 10/15/23 20:32 BP 102/67 10/15/23 20:32 Pulse Ox 97 10/15/23 20:32 FiO2 Intake & Output 10/15/23 10/15/23 10/16/23 06:59 18:59 06:59 Intake Total 125 Balance 125 Weight 122.47 kg 122.47 kg Intake: IV 125 Other: Voiding Method Toilet # Voids 1 4 - Labs CBC & Chem 7: 10/15/23 03:06 10/15/23 03:06 Labs: Abnormal Lab Results - Last 24 Hours (Table) 10/15/23 10/15/23 Range/Units 03:06 03:06 Lymphocytes # 0.59 L (0.90-5.00) X 10*3/uL Monocytes # 0.12 L (0.20-1.00) X 10*3/uL Eosinophils # 0 L (0.04-0.35) X 10*3/uL Carbon Dioxide 17.3 L (21.6-31.8) mmol/L Anion Gap 15.70 H (4.00-12.00) mmol/L BUN 7.4 L (9.0-27.0) mg/dL
== END 2023-10-16 16:28 | disposition home or self-care (01) | DRG 403 ==
LOC: 2ORMAIN 10-14 13:52 → 4SSUR 10-14 19:29
PROVIDERS: ADMIT Surgery Plastic and Reconstructive Surgery; ATTEND Surgery Plastic and Reconstructive Surgery
PROC: 8E0W4CZ Robotic Assisted Procedure of Trunk Region, Percutaneous Endoscopic Approach (ICD-10-PCS; principal; 2023-10-14 15:20)
PROC: 0DJ08ZZ Inspection of Upper Intestinal Tract, Via Natural or Artificial Opening Endoscopic (ICD-10-PCS; principal; 2023-10-14 15:20)
PROC: 0DB64Z3 Excision of Stomach, Percutaneous Endoscopic Approach, Vertical (ICD-10-PCS; principal; 2023-10-14 15:20)
DX: E66.01 Morbid (severe) obesity due to excess calories (principal); Z68.43 Body mass index [BMI] 50.0-59.9, adult; M17.0 Bilateral primary osteoarthritis of knee; M47.816 Spondylosis without myelopathy or radiculopathy, lumbar region; J45.909 Unspecified asthma, uncomplicated; G43.909 Migraine, unspecified, not intractable, without status migrainosus; H40.9 Unspecified glaucoma; F41.1 Generalized anxiety disorder; M19.09 Primary osteoarthritis, other specified site; I11.9 Hypertensive heart disease without heart failure; Z87.891 Personal history of nicotine dependence; Z79.899 Other long term (current) drug therapy; Z88.1 Allergy status to other antibiotic agents
CPT/HCPCS: 74240; 80051; 82310; 82565; 83735; 84100; 84520; 85025; 86850; 86900; 86901; 88307; 94640; 94760; 94762

== ENCOUNTER → 2023-10-18 | Outpatient (CLI) | payer OTHER ==
[~2023-10-18] MED LIST changes: -INDOCYANINE GREEN 25 MG VIAL IV STA; -LIDOCAINE 1% (10MG/ML) FOR IV START INTRADERMA PRN; +SODIUM CHLORIDE 0.9% 1,000 ML IV NR; +SODIUM CHLORIDE 0.9% 500 ML 500 ML in EMPTY BAG 1 BAG IV PRN; -droPERidol 5 MG/2 ML VIAL IVP ONE
[2023-10-18] MEDS: SODIUM CHLORIDE 0.9% 1,000 ML IV NR ×2 (09:40)
[2023-10-18 09:54] VITALS: BP 139/84; PULSE 72; TEMP 97.8
[2023-10-18 10:11] VITALS: RESP 14; BMI 49.4
--- NOTE | 2023-10-18 20:15 | P.BASOAP ---
Subjective Progress Note Date: 10/18/23 Has appropriate soreness from incision. Has allergic reaction minimal along incisions. Has panniculitis of the breast. Triamcinolone cream ordered. Patient reports decreased oral intake. IV fluid hydration 1 L described. Close follow-up next week bariatric center at 2 to 3 PM. All questions addressed. No infection. Abdominal binder repositioned. All dressings were discontinued. Objective - Vital Signs Vital signs: Vital Signs Temp 97.8 F 10/18/23 10:00 Pulse 72 10/18/23 10:00 Resp 14 10/18/23 10:00 BP 139/84 10/18/23 10:00 Pulse Ox FiO2 Intake & Output 10/18/23 10/18/23 10/19/23 06:59 18:59 06:59 Weight 118.66 kg Assessment/Plan Plan: Date: 10/18/23 Initial Weight: 126.354 kg Initial BMI: 52.6 Current Weight: 118.66 kg Current BMI: 49.4 Type of Surgery: Total Volume in Band: Previous Volume: Volume Removed: Volume Added: Band Size:
== END ==
LOC: BARWHC3 09:00
PROVIDERS: ATTEND Surgery Plastic and Reconstructive Surgery
DX: E86.0 Dehydration (principal); Z88.8 Allergy status to other drugs, medicaments and biological substances; Z91.048 Other nonmedicinal substance allergy status
CPT/HCPCS: 96360; G0463; 99211